=== PATIENT | male | born 1950 | race Two or more races ===

== ENCOUNTER 2020-04-02 14:27 | Inpatient (IN) | payer OTHER, MEDICAID ==
[~2020-04-02] VITALS: Ht 160 cm; Wt 62.6 kg
[2020-04-02] MEDS ORDERED: SODIUM CHLORIDE 0.9% 1,000 ML IV ONE (15:30)
[2020-04-02] MEDS ORDERED: CEFTRIAXONE 1 G PREMIX 50 ML IV ONE (15:45)
[2020-04-02] MEDS ORDERED: VANCOMYCIN 1 G PREMIX 200 ML IV ONE (15:45)
[2020-04-02] MEDS ORDERED: METRONIDAZOLE 500 MG PREMIX 100 ML IV ONE (15:45)
[2020-04-02 16:28] LABS: BASOPHILS % 0.5 % (0.0-2.0); EOSINOPHILS % 0.1 % (0.0-5.0); HEMATOCRIT. 36.3 % (42.0-52.0); HEMOGLOBIN. 12.1 g/dL (14.0-18.0); LYMPHOCYTES % 12.9 % (20.0-50.0); MEAN CORPUSCULAR HEMOGLOBIN 27.9 pg (28.0-32.0); MEAN CORPUSCULAR VOLUME 83.8 fL (80.0-94.0); MONOCYTES % 6.6 % (2.0-8.0); NEUTROPHILS % 79.9 % (40.0-76.0); PLATELET 463 x1000/uL (130-400); RED BLOOD CELL COUNT 4.33 mill/uL (4.7-6.1)
[2020-04-02 16:33] LABS: CHLORIDE 102 mEq/L (98-107)
[2020-04-02 16:36] LABS: INR 1.1; PROTHROMBIN TIME 11.2 sec (9.6-11.0)
[2020-04-02] MEDS ORDERED: ONDANSETRON HCL 4MG/2ML INJ IV PRN (21:30)
[2020-04-02] MEDS ORDERED: POTASSIUM CHLORIDE 20MEQ TABLET SR PO NR (21:30)
[2020-04-02 22:35] VITALS: BP 122/67
[2020-04-03] MEDS: ENOXAPARIN 40MG/0.4ML SYR SUBCUT SCH ×2 (00:40→21:14)
[2020-04-03] MEDS ORDERED: VANCOMYCIN 750 MG PREMIX 150 ML IV SCH (01:00)
[2020-04-03] MEDS: ACETAMINOPHEN 325MG TABLET PO PRN (01:54)
[2020-04-03] MEDS ORDERED: ASPI-986 PO (02:39)
[2020-04-03] MEDS ORDERED: AMOX125S12 PO (02:39)
[2020-04-03] MEDS ORDERED: SITA100T11 PO (02:39)
[2020-04-03] MEDS ORDERED: GABA-529 PO (02:39)
[2020-04-03] MEDS ORDERED: IBUP-516 PO (02:39)
[2020-04-03] MEDS ORDERED: CLIN75CA2 PO (02:39)
[2020-04-03] MEDS ORDERED: ACET160S PO (02:39)
[2020-04-03] MEDS ORDERED: CLOP75TA33 PO (02:39)
[2020-04-03] MEDS ORDERED: GLIP10TA10 PO (02:39)
[2020-04-03] MEDS ORDERED: EMPA10TA PO (02:39)
[2020-04-03] MEDS ORDERED: ATOR10TA69 PO (02:39)
[2020-04-03 08:00] VITALS: BP 120/67
[2020-04-03 12:00] VITALS: BP 128/71
[2020-04-03] MEDS ORDERED: LIDOCAINE HCL 1% 20ML VIAL (Pyxis) INJ ONE (13:54)
[2020-04-03] MEDS ORDERED: DEXTROSE 50% WATER 50ML SYRINGE IV PRN (14:45)
[2020-04-03 16:00] VITALS: BP 155/78
[2020-04-03] MEDS: PIPERACILLIN/TAZOBACTAM 3.375 G in DEXT 5% WATER 100 ML IV SCH ×2 (17:27→21:13)
[2020-04-03 17:53] LABS: BASOPHILS % 0.4 % (0.0-2.0); EOSINOPHILS % 0.2 % (0.0-5.0); HEMATOCRIT. 34.6 % (42.0-52.0); HEMOGLOBIN. 11.5 g/dL (14.0-18.0); LYMPHOCYTES % 24.1 % (20.0-50.0); MONOCYTES % 8.7 % (2.0-8.0); NEUTROPHILS % 66.6 % (40.0-76.0); PLATELET 393 x1000/uL (130-400); RED BLOOD CELL COUNT 4.12 mill/uL (4.7-6.1); RED CELL DISTRIBUTION WIDTH 13.1 % (11.6-14.6)
[2020-04-03 18:17] LABS: CHLORIDE 101 mEq/L (98-107)
[2020-04-03] MEDS ORDERED: IOHEXOL-350 100 ML BOTTLE ONE (18:53)
[2020-04-03 19:58] VITALS: BP 154/91
[2020-04-03] MEDS: HYDROCODONE/ACETAMINOPHEN 5/325MG TABLET PO PRN (20:15)
[2020-04-03] MEDS: INSULIN LISPRO 100 UNITS/ML SUBCUT SCH (20:17)
[2020-04-03] MEDS: BLOOD SUGAR DIAGNOSTIC STRIP TEST SCH (20:18)
[2020-04-04] VITALS: BP 159/83
[2020-04-04] MEDS: HYDROCODONE/ACETAMINOPHEN 5/325MG TABLET PO PRN ×2 (00:43→17:49)
[2020-04-04 04:00] VITALS: BP 150/42
[2020-04-04] MEDS: PIPERACILLIN/TAZOBACTAM 3.375 G in DEXT 5% WATER 100 ML IV SCH ×5 (04:55→23:12)
[2020-04-04] MEDS: INSULIN LISPRO 100 UNITS/ML SUBCUT SCH ×4 (07:24→22:03)
[2020-04-04] MEDS: BLOOD SUGAR DIAGNOSTIC STRIP TEST SCH ×4 (07:24→21:11)
[2020-04-04 08:03] VITALS: BP 138/73
[2020-04-04] MEDS ORDERED: HEPARIN SODIUM 1,000 UNIT/1ML VIAL IV ONE (08:30)
[2020-04-04] MEDS ORDERED: LIDOCAINE HCL 1% 20ML VIAL (Pyxis) INJ ONE (08:49)
[2020-04-04] MEDS ORDERED: IODIXANOL 320MG/ML 100 ML BOTTLE IV ONE ×2 (08:50→14:40)
[2020-04-04] MEDS ORDERED: IOHEXOL-300 100 ML BOTTLE ONE (08:50)
[2020-04-04 12:00] VITALS: BP 131/78
[2020-04-04] MEDS ORDERED: MIDAZOLAM HCL 2 MG/2 ML VIAL ONE ×2 (13:46→14:14)
[2020-04-04] MEDS ORDERED: FENTANYL CITRATE/PF 50MCG/ML 2ML VIAL ONE ×2 (13:47→14:51)
[2020-04-04] MEDS ORDERED: CLOPIDOGREL 75MG TABLET ONE (15:13)
[2020-04-04 16:00] VITALS: BP 135/65
[2020-04-04] MEDS: CLOPIDOGREL 75MG TABLET PO SCH (17:49)
[2020-04-04 20:00] VITALS: BP 125/72
[2020-04-04] MEDS: ENOXAPARIN 40MG/0.4ML SYR SUBCUT SCH (21:11)
[2020-04-04] MEDS: ACETAMINOPHEN 325MG TABLET PO PRN (23:26)
[2020-04-05] VITALS: BP 120/81
[2020-04-05] MEDS: PIPERACILLIN/TAZOBACTAM 3.375 G in DEXT 5% WATER 100 ML IV SCH ×3 (03:31→15:36)
[2020-04-05 04:00] VITALS: BP 119/77
[2020-04-05] MEDS: BLOOD SUGAR DIAGNOSTIC STRIP TEST SCH ×3 (07:07→16:49)
[2020-04-05] MEDS: CLOPIDOGREL 75MG TABLET PO SCH (09:01)
[2020-04-05] MEDS: INSULIN LISPRO 100 UNITS/ML SUBCUT SCH ×3 (09:51→16:53)
[2020-04-05 12:00] VITALS: BP 116/72
[2020-04-05] MEDS: HYDROCODONE/ACETAMINOPHEN 5/325MG TABLET PO PRN (12:06)
[2020-04-05 16:00] VITALS: BP 129/72
[2020-04-05 17:51] VITALS: BP 129/72
[2020-04-05] MEDS ORDERED: AMOX-424 MT (18:42)
[2020-04-05] MEDS ORDERED: HYDR-4001 MT (18:43)
== END 2020-04-05 19:20 | disposition home health service (06) | DRG 854 ==
LOC: ER 14:27 → 6EST 17:48 → EDBEDREQ 17:55 → EDBEDREQTM 17:55 → ENRESERV 20:01
PROVIDERS: ADMIT Internal Medicine; ATTEND Internal Medicine
PROC: B41GZZZ Fluoroscopy of Left Lower Extremity Arteries (ICD-10-PCS; principal; 2020-04-04)
PROC: B41FZZZ Fluoroscopy of Right Lower Extremity Arteries (ICD-10-PCS; 2020-04-04)
PROC: 04CK0ZZ Extirpation of Matter from Right Femoral Artery, Open Approach (ICD-10-PCS; 2020-04-04)
PROC: 04CM0ZZ Extirpation of Matter from Right Popliteal Artery, Open Approach (ICD-10-PCS; 2020-04-04)
PROC: 04CT0ZZ Extirpation of Matter from Right Peroneal Artery, Open Approach (ICD-10-PCS; 2020-04-04)
PROC: 047K3ZZ Dilation of Right Femoral Artery, Percutaneous Approach (ICD-10-PCS; 2020-04-04)
PROC: 047M3ZZ Dilation of Right Popliteal Artery, Percutaneous Approach (ICD-10-PCS; 2020-04-04)
PROC: 047T3ZZ Dilation of Right Peroneal Artery, Percutaneous Approach (ICD-10-PCS; 2020-04-04)
PROC: 047K34Z Dilation of Right Femoral Artery with Drug-eluting Intraluminal Device, Percutaneous Approach (ICD-10-PCS; 2020-04-04)
PROC: 047M34Z Dilation of Right Popliteal Artery with Drug-eluting Intraluminal Device, Percutaneous Approach (ICD-10-PCS; 2020-04-04)
PROC: 04HL33Z Insertion of Infusion Device into Left Femoral Artery, Percutaneous Approach (ICD-10-PCS; 2020-04-04)
PROC: 04HC33Z Insertion of Infusion Device into Right Common Iliac Artery, Percutaneous Approach (ICD-10-PCS; 2020-04-04)
PROC: 04HK33Z Insertion of Infusion Device into Right Femoral Artery, Percutaneous Approach (ICD-10-PCS; 2020-04-04)
PROC: 04HT33Z Insertion of Infusion Device into Right Peroneal Artery, Percutaneous Approach (ICD-10-PCS; 2020-04-04)
PROC: 05HY33Z Insertion of Infusion Device into Upper Vein, Percutaneous Approach (ICD-10-PCS; 2020-04-04)
PROC: B54MZZA Ultrasonography of Right Upper Extremity Veins, Guidance (ICD-10-PCS; 2020-04-04)
DX: A41.9 Sepsis, unspecified organism (principal); E11.52 Type 2 diabetes mellitus with diabetic peripheral angiopathy with gangrene; I96 Gangrene, not elsewhere classified; D64.9 Anemia, unspecified; I10 Essential (primary) hypertension; E78.5 Hyperlipidemia, unspecified; E87.6 Hypokalemia; M85.80 Other specified disorders of bone density and structure, unspecified site; E78.00 Pure hypercholesterolemia, unspecified; F17.200 Nicotine dependence, unspecified, uncomplicated; L08.9 Local infection of the skin and subcutaneous tissue, unspecified; Z20.822 Contact with and (suspected) exposure to COVID-19; Z79.4 Long term (current) use of insulin; Z83.3 Family history of diabetes mellitus; Z79.899 Other long term (current) drug therapy; I70.201 Unspecified atherosclerosis of native arteries of extremities, right leg
CPT/HCPCS: 36415; 37227; 73630; 75635; 75710; 76937; 80048; 80053; 82962; 83036; 83605; 85025; 87426; 93005; 93923; 99285; C1725; C1760; C1769; C1876; C1885; C1887; C1893; C1894; J0696; J1644; J1650; J1815; J2250; J2543; J3010; J3370; J3490; J7030; J7040; J7060; Q9967

== ENCOUNTER 2020-05-05 05:26 | Emergency (ER) | payer OTHER, MEDICAID ==
[~2020-05-05] VITALS: Ht 154.9 cm; Wt 59.9 kg
[~2020-05-05 05:26] MED LIST: ACET160S PO; AMOX-424 MT; ASPI-986 PO; ATOR10TA69 PO; CLOP75TA33 PO; EMPA10TA PO; GABA-529 PO; GLIP10TA10 PO; HYDR-4001 MT; IBUP-516 PO; SITA100T11 PO
[2020-05-05] MEDS ORDERED: CEPH500C2 PO (05:54)
[2020-05-05] MEDS ORDERED: TRAM50TA3 PO (05:55)
[2020-05-05 06:50] LABS: CHLORIDE 106 mEq/L (98-107)
[2020-05-05 06:53] LABS: INR 0.9
[2020-05-05 07:04] LABS: BASOPHILS % 0.6 % (0.0-2.0); EOSINOPHILS % 2.4 % (0.0-5.0); HEMATOCRIT. 35.1 % (42.0-52.0); HEMOGLOBIN. 11.9 g/dL (14.0-18.0); LYMPHOCYTES % 37.2 % (20.0-50.0); MEAN CORPUSCULAR VOLUME 82.8 fL (80.0-94.0); MEAN PLATELET VOLUME 8.2 fl (7.4-10.4); MONOCYTES % 8.6 % (2.0-8.0); NEUTROPHILS % 51.2 % (40.0-76.0); PLATELET 286 x1000/uL (130-400); RED BLOOD CELL COUNT 4.24 mill/uL (4.7-6.1); RED CELL DISTRIBUTION WIDTH 13.7 % (11.6-14.6)
[2020-05-05] MEDS ORDERED: VANCOMYCIN 1 G PREMIX 200 ML IV SCH (08:00)
[2020-05-05 11:03] LABS: CLARITY URINE CLEAR (CLEAR); COLOR URINE YELLOW (YELLOW); KETONES URINE NEGATIVE (NEGATIVE); LEUKOCYTE ESTERASE URINE NEGATIVE (NEGATIVE); NITRITE URINE NEGATIVE (NEGATIVE); OCCULT BLOOD URINE NEGATIVE (NEGATIVE); PROTEIN URINE NEGATIVE (NEGATIVE); SPECIFIC GRAVITY URINE 1.012 (1.005-1.030); UROBILINOGEN URINE 0.2 E.U./dL (0.2-1.0)
[2020-05-05] MEDS ORDERED: HYDROCODONE/ACETAMINOPHEN 5/325MG TABLET PO SCH (11:30)
[2020-05-05] MEDS ORDERED: HYDROCODONE/ACETAMINOPHEN 5/325MG TABLET PO PRN (11:30)
[2020-05-05] MEDS ORDERED: KCL 20MEQ/100ML PREMIX 100 ML IV SCH (12:15)
[2020-05-05] MEDS ORDERED: BACITRACIN 50,000 UNITS/VIAL ONE (14:29)
[2020-05-05] MEDS ORDERED: BUPIVACAINE HCL/PF 0.5% (5MG/ML) 10ML ONE (14:30)
[2020-05-05] MEDS ORDERED: LIDOCAINE HCL 1% 20ML VIAL (Pyxis) INJ ONE (14:30)
[2020-05-05] MEDS ORDERED: PROPOFOL 10MG/ML 100ML 100 ML IV ONE (15:47)
[2020-05-05] MEDS ORDERED: MIDAZOLAM HCL 2 MG/2 ML VIAL ONE (15:48)
[2020-05-05] MEDS ORDERED: CEFAZOLIN SODIUM 1000MG/VIAL ONE (15:48)
[2020-05-05] MEDS ORDERED: SUCCINYLCHOLINE CHLORIDE 200MG/10ML IV ONE (15:48)
[2020-05-05] MEDS ORDERED: FENTANYL CITRATE/PF 50MCG/ML 2ML VIAL ONE (16:20)
[2020-05-05] MEDS ORDERED: BACITRACIN/POLYMYXIN B SULFATE OINT 28.35GM TOP ONE (16:26)
[2020-05-05] MEDS ORDERED: MORPHINE SULFATE 2 MG/ML CPJ (NOT FOR IM USE) IV PRN ×2 (17:00→20:15)
[2020-05-05] MEDS ORDERED: ONDANSETRON HCL 4MG/2ML INJ IV PRN (17:00)
[2020-05-05] MEDS ORDERED: SODIUM CHLORIDE 0.9% 1,000 ML IV ONE (17:00)
[2020-05-05] MEDS ORDERED: HYDROMORPHONE HCL/PF 2MG/ML CPJ IV PRN (17:00)
[2020-05-05 18:52] VITALS: BP 154/79
[2020-05-05] MEDS ORDERED: VANCOMYCIN 750 MG PREMIX 150 ML IV SCH (20:00)
[2020-05-05] MEDS ORDERED: DEXTROSE 50% WATER 50ML SYRINGE IV PRN (20:15)
[2020-05-05] MEDS ORDERED: INSULIN LISPRO 100 UNITS/ML SUBCUT SCH (21:00)
[2020-05-05] MEDS ORDERED: ATORVASTATIN CALCIUM 20MG TABLET PO SCH (21:00)
[2020-05-05] MEDS ORDERED: FAMOTIDINE 20MG TABLET PO SCH (21:00)
[2020-05-05] MEDS ORDERED: BLOOD SUGAR DIAGNOSTIC STRIP TEST SCH (21:00)
[2020-05-05] MEDS ORDERED: PIPERACILLIN/TAZOBACTAM 3.375 G/VIAL IV SCH (22:00)
[2020-05-06] MEDS ORDERED: LISINOPRIL 20MG TABLET PO SCH (09:00)
[2020-05-06] MEDS ORDERED: ASPIRIN 81MG TABLET PO SCH (09:00)
[2020-05-06] MEDS ORDERED: CLOPIDOGREL 75MG TABLET PO SCH (09:00)
[2020-05-06] MEDS ORDERED: ENOXAPARIN 40MG/0.4ML SYR SUBCUT SCH (09:00)
== END 2020-05-05 17:59 | disposition still patient (30) ==
LOC: ER 05:26 → OR 08:59 → UNDOADMIN 09:00 → MICUSO 09:00 → ER 17:59 → ENRESERV 05-06 06:24
DX: I96 Gangrene, not elsewhere classified (principal); E11.9 Type 2 diabetes mellitus without complications; E78.00 Pure hypercholesterolemia, unspecified; I10 Essential (primary) hypertension; Z79.899 Other long term (current) drug therapy; Z20.822 Contact with and (suspected) exposure to COVID-19
CPT/HCPCS: 36415; 71045; 73630; 80053; 81003; 82962; 83036; 85025; 85610; 85651; 86141; 87070; 87075; 87077; 87186; 87205; 87426; 88304; 88311; 93005; 96361; 96365; 96366; 99285; J0330; J0690; J2250; J2704; J3010; J3370; J3480; J3490

== ENCOUNTER 2020-05-05 18:00 | Inpatient (IN) | payer OTHER, MEDICAID ==
[~2020-05-05] VITALS: Ht 154.9 cm; Wt 78.5 kg
[~2020-05-05 18:00] MED LIST changes: +CEPH500C2 PO; +TRAM50TA3 PO
[2020-05-05 20:00] VITALS: BP_SYST 138; BP_SYST 150; BP_SYST 154; BP_DIAS 67; BP_DIAS 79; BP_DIAS 83
[2020-05-05] MEDS ORDERED: PIPERACILLIN/TAZOBACTAM 3.375 G/VIAL IV SCH (22:00)
[2020-05-05] MEDS ORDERED: DEXTROSE 50% WATER 50ML SYRINGE IV PRN (22:00)
[2020-05-05] MEDS: MORPHINE SULFATE 2 MG/ML CPJ (NOT FOR IM USE) IV PRN (22:53)
[2020-05-06] VITALS (7 sets, daily range): BP systolic 100–154; BP diastolic 57–78
[2020-05-06] MEDS ORDERED: VANCOMYCIN 1500MG in DEXTROSE 5% WATER 250ML IV SCH ×2
[2020-05-06] MEDS: MORPHINE SULFATE 2 MG/ML CPJ (NOT FOR IM USE) IV PRN ×4 (03:14→18:15)
[2020-05-06] MEDS ORDERED: PIPERACILLIN/TAZOBACTAM 3.375 G in DEXT 5% WATER 100 ML IV NR (05:00)
[2020-05-06] MEDS: INSULIN LISPRO 100 UNITS/ML SUBCUT SCH ×4 (06:03→20:34)
[2020-05-06] MEDS: BLOOD SUGAR DIAGNOSTIC STRIP TEST SCH ×4 (06:03→20:33)
[2020-05-06 06:39] LABS: BASOPHILS % 0.4 % (0.0-2.0); EOSINOPHILS % 0.4 % (0.0-5.0); HEMATOCRIT. 34.7 % (42.0-52.0); HEMOGLOBIN. 11.6 g/dL (14.0-18.0); LYMPHOCYTES % 17.5 % (20.0-50.0); MEAN CORPUSCULAR HEMOGLOBIN 27.8 pg (28.0-32.0); MEAN CORPUSCULAR VOLUME 83.1 fL (80.0-94.0); MEAN PLATELET VOLUME 8.6 fl (7.4-10.4); MONOCYTES % 7.2 % (2.0-8.0); NEUTROPHILS % 74.5 % (40.0-76.0); PLATELET 275 x1000/uL (130-400); RED BLOOD CELL COUNT 4.17 mill/uL (4.7-6.1)
[2020-05-06 06:52] LABS: CHLORIDE 104 mEq/L (98-107)
[2020-05-06 07:05] LABS: LDL CHOLESTEROL 84 mg/dL (5-100)
[2020-05-06 07:08] LABS: HDL CHOLESTEROL 41 mg/dL (40-59)
[2020-05-06] MEDS: ENOXAPARIN 40MG/0.4ML SYR SUBCUT SCH (08:38)
[2020-05-06] MEDS: FAMOTIDINE 20MG TABLET PO SCH ×2 (08:38→20:32)
[2020-05-06] MEDS: CLOPIDOGREL 75MG TABLET PO SCH (08:38)
[2020-05-06] MEDS: ASPIRIN 81MG TABLET PO SCH (08:39)
[2020-05-06] MEDS: LISINOPRIL 20MG TABLET PO SCH (08:39)
[2020-05-06] MEDS: PIPERACILLIN/TAZOBACTAM 3.375 G in DEXT 5% WATER 100 ML IV SCH ×2 (13:21→20:35)
[2020-05-06] MEDS: HYDROCODONE/ACETAMINOPHEN 5/325MG TABLET PO PRN ×2 (14:38→20:32)
[2020-05-06] MEDS: VANCOMYCIN 750 MG PREMIX 150 ML IV SCH (18:15)
[2020-05-06] MEDS: ATORVASTATIN CALCIUM 20MG TABLET PO SCH (20:33)
[2020-05-07 04:30] VITALS: BP 100/66
[2020-05-07] MEDS: VANCOMYCIN 750 MG PREMIX 150 ML IV SCH ×2 (05:24→17:50)
[2020-05-07] MEDS: PIPERACILLIN/TAZOBACTAM 3.375 G in DEXT 5% WATER 100 ML IV SCH ×3 (05:24→20:54)
[2020-05-07] MEDS: BLOOD SUGAR DIAGNOSTIC STRIP TEST SCH ×4 (06:44→20:55)
[2020-05-07] MEDS: INSULIN LISPRO 100 UNITS/ML SUBCUT SCH ×4 (07:50→20:55)
[2020-05-07 08:26] VITALS: BP 105/60
[2020-05-07] MEDS: LISINOPRIL 20MG TABLET PO SCH (09:00)
[2020-05-07] MEDS: ENOXAPARIN 40MG/0.4ML SYR SUBCUT SCH (09:07)
[2020-05-07] MEDS: ASPIRIN 81MG TABLET PO SCH (09:08)
[2020-05-07] MEDS: CLOPIDOGREL 75MG TABLET PO SCH (09:08)
[2020-05-07] MEDS: FAMOTIDINE 20MG TABLET PO SCH ×2 (09:08→20:55)
[2020-05-07 12:00] VITALS: BP 119/74
[2020-05-07] MEDS ORDERED: HYDROCODONE/ACETAMINOPHEN 10/325MG TABLET PO PRN (13:15)
[2020-05-07 16:00] VITALS: BP 117/78
[2020-05-07 20:00] VITALS: BP 108/74
[2020-05-07] MEDS: ATORVASTATIN CALCIUM 20MG TABLET PO SCH (20:54)
[2020-05-08] VITALS: BP 120/75
[2020-05-08] MEDS ORDERED: ACETAMINOPHEN 325MG TABLET PO PRN (03:15)
[2020-05-08 04:30] VITALS: BP 131/70
[2020-05-08] MEDS: PIPERACILLIN/TAZOBACTAM 3.375 G in DEXT 5% WATER 100 ML IV SCH ×2 (05:23→13:16)
[2020-05-08] MEDS: VANCOMYCIN 750 MG PREMIX 150 ML IV SCH (06:04)
[2020-05-08] MEDS: BLOOD SUGAR DIAGNOSTIC STRIP TEST SCH ×2 (06:22→13:06)
[2020-05-08 06:23] VITALS: BP 131/70
[2020-05-08 08:00] VITALS: BP 115/72
[2020-05-08] MEDS: INSULIN LISPRO 100 UNITS/ML SUBCUT SCH ×2 (08:27→13:14)
[2020-05-08] MEDS: FAMOTIDINE 20MG TABLET PO SCH (08:29)
[2020-05-08] MEDS: CLOPIDOGREL 75MG TABLET PO SCH (08:29)
[2020-05-08] MEDS: ENOXAPARIN 40MG/0.4ML SYR SUBCUT SCH (08:29)
[2020-05-08] MEDS: LISINOPRIL 20MG TABLET PO SCH (08:29)
[2020-05-08] MEDS: ASPIRIN 81MG TABLET PO SCH (08:29)
[2020-05-08 09:25] LABS: CHLORIDE 102 mEq/L (98-107)
[2020-05-08] MEDS ORDERED: HYDR-4001 MT (11:25)
[2020-05-08] MEDS ORDERED: AMOX-424 MT (11:25)
[2020-05-08 12:00] VITALS: BP 105/61
[2020-05-08] MEDS ORDERED: VANCOMYCIN 750 MG PREMIX 150 ML IV SCH (14:00)
[2020-05-08 16:00] VITALS: BP 98/62
== END 2020-05-08 18:42 | disposition home health service (06) | DRG 854 ==
LOC: 6WST 18:00
PROVIDERS: ADMIT Internal Medicine; ATTEND Internal Medicine
PROC: 0Y6R0Z0 Detachment at Right 2nd Toe, Complete, Open Approach (ICD-10-PCS; principal; 2020-05-05)
PROC: 0Y6T0Z1 Detachment at Right 3rd Toe, High, Open Approach (ICD-10-PCS; 2020-05-05)
DX: A41.9 Sepsis, unspecified organism (principal); E11.52 Type 2 diabetes mellitus with diabetic peripheral angiopathy with gangrene; E78.5 Hyperlipidemia, unspecified; I10 Essential (primary) hypertension; L97.519 Non-pressure chronic ulcer of other part of right foot with unspecified severity; E11.621 Type 2 diabetes mellitus with foot ulcer; Z79.82 Long term (current) use of aspirin; Z79.02 Long term (current) use of antithrombotics/antiplatelets; Z79.4 Long term (current) use of insulin; Z79.899 Other long term (current) drug therapy; Z98.62 Peripheral vascular angioplasty status
CPT/HCPCS: 36415; 80048; 80061; 80202; 82962; 83036; 85025; 97116; 97162; 97166; 97530; J1650; J1815; J2270; J2543; J3370; J7040; J7060